=== PATIENT | female | born 1975 | race Caucasian/White ===

== ENCOUNTER 2017-12-05 23:12 | Emergency (ER) | payer SELFPAY ==
[~2017-12-05] VITALS: Ht 160 cm; Wt 92.1 kg
[2017-12-05 23:22] VITALS: Ht 160 cm; Wt 92.1 kg
[2017-12-06 01:40] VITALS: BP 123/84
== END 2017-12-06 01:17 | disposition home or self-care (01) ==
LOC: ED 23:12
DX: I88.9 Nonspecific lymphadenitis, unspecified (principal); H92.02 Otalgia, left ear; R51 Headache